=== PATIENT | male | born 1995 | race Caucasian/White ===

== ENCOUNTER 2021-11-24 12:30 | Inpatient (IN) | payer MEDICAID, SELFPAY ==
[2021-11-24 12:31] VITALS: BP 119/79; PULSE 88; RESP 15; TEMP 36; O2SAT 98; BMI 24.3
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
[2021-11-24] MEDS: LORazepam 1 MG Tablet PO (12:56)
[2021-11-24] MEDS: Ondansetron ODT 4 MG Tablet PO (12:56)
[2021-11-24 13:11] LABS: Absolute Lymphocyte Count 1.34 X10^3/uL (0.83-4.51); Absolute Neutrophil Count 6.2 X10^3/uL (2.0-7.7); Basophil# 0.03 X10^3/uL; Basophil% 0.3 % (0-1); Eosinophil# 0.31 X10^3/uL; Eosinophils% 3.6 % (0-5); Hematocrit 35.6 % (40-54); Hemoglobin 11.4 g/dL (13.0-16.5); Lymphocyte # 1.34 X10^3/ul (0.83-4.51); Lymphocyte % 15.5 % (19-41); Mean Corpuscular Hgb 27.9 pg (27.0-32.0); Mean Platelet Vol. 11.3 fl (6.2-12.0); Monocyte# 0.71 X10^3/uL; Monocyte% 8.2 % (0-10); NRBC Flagged by Analyzer 0 % (0-5); Neutrophil % 72.1 % (47-70); Platelet Count 258 K/mm3 (150-450); RBC Distribution Width CV 12.3 % (11.6-14.6); RBC Distribution Width SD 39.7 fl (35.1-43.9); Red Blood Count 4.09 M/mm3 (4.6-6.2); White Blood Count 8.6 K/mm3 (4.4-11.0)
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
[2021-11-24 13:28] LABS: ALB/GLOB Ratio 0.9 RATIO (0.9-2.4); AST(SGOT) 13 U/L (15-37); Alanine Aminotransfer ALT/SGPT 14 U/L (16-61); Albumin, Serum 3.3 g/dL (3.2-5.0); Alkaline Phosphatase 89 U/L (45-117); Anion Gap 5 (5-15); BUN 5 mg/dL (7-18); BUN/Creat Ratio 6.3 RATIO (10-20); Calcium,Total 8.9 mg/dL (8.5-10.1); Chloride 107 mmol/L (98-107); EST Glomerular Filtration Rate 125 mL/min (>60); Est Glom Filt Rate - Afr Amer 152 mL/min (>60); Estimated Creatinine Clearance 145.75 ml/min; Globulin 3.6 g/dL (2.2-4.2); Glucose 102 mg/dL (74-106); Potassium 3.7 mmol/L (3.5-5.1); Protein, Total 6.9 g/dL (6.4-8.2); Sodium Level 141 mmol/L (136-145)
[2021-11-24 13:34] LABS: Amphetamine Urine VISTA NEGATIVE (<1000 ng/mL); Barbiturate Urine VISTA NEGATIVE (< 200 ng/mL); Benzodiazepine Urine VISTA NEGATIVE (< 200 ng/mL); Cocaine Urine VISTA NEGATIVE (< 300 ng/mL); Ecstacy Urine VISTA NEGATIVE (< 500 ng/mL); Methadone Urine VISTA NEGATIVE (< 300 ng/mL); PCP Urine VISTA NEGATIVE (< 25 ng/mL); THC Urine VISTA POSITIVE (< 50 ng/mL); Vista UDS pH Range 6
--- NOTE | 2021-11-24 13:43 | CM.ED ---
Social Work Note Reason for Referral: LIVIER MONTERO reviewed chart. Pt is at [facility] for detox. SW in to speak with pt. Pt has guest present in room. Pt gave permission for this worker to speak to him in front of his guest. Pt confirms that he is at [facility] for RAMP/Detox. Pt states that he is aware of the rules and is agreeable to the rules. SW informed pt that this worker will call the addiction therapist to let her know pt is at [facility] and pt will be seen tomorrow. Pt states understanding. Pt's guest states she is a SW, states she called [employer] about the program, denied any additional questions or concerns at this time. KYLAH placed a call to [facility], addiction therapist, and provided referral. Plan: LIVIER Cortez [employer], [employer]
[2021-11-24 14:00] VITALS: BMI 24.3
[2021-11-24 14:01] VITALS: BP 141/65; PULSE 84; RESP 20; TEMP 36.8; O2SAT 99
[2021-11-24] MEDS: Gabapentin 300 MG Capsule PO ×2 (15:00→23:18)
[2021-11-24] MEDS: Buprenorphine HCl 2 MG TAB.SUBL SL ×2 (15:00→22:12)
[2021-11-24] MEDS: Acetaminophen 325 MG Tablet 650 MG PO (15:00)
[2021-11-24] MEDS: Dicyclomine 10 MG Capsule 20 MG PO (15:00)
[2021-11-24 20:19] VITALS: BP 112/65; PULSE 69; RESP 18; TEMP 37; O2SAT 97
[2021-11-24] MEDS: Methocarbamol 750 MG Tablet 1500 MG PO (20:21)
[2021-11-24] MEDS: hydrOXYzine PAM 25 MG Capsule 50 MG PO (20:25)
[2021-11-24 22:07] VITALS: BP 108/66; PULSE 62; RESP 16; TEMP 36.9; O2SAT 98
[2021-11-24] MEDS: QUEtiapine 25 MG Tablet 150 MG PO (22:11)
[2021-11-24] MEDS: lamoTRIgine 100 MG Tablet PO (22:11)
[2021-11-25 03:48] VITALS: BP 126/68; PULSE 77; RESP 18; TEMP 37; O2SAT 100
[2021-11-25] MEDS: Dicyclomine 10 MG Capsule 20 MG PO (03:53)
[2021-11-25] MEDS: cloNIDine HCl 0.1 MG Tablet PO ×2 (03:53→20:18)
[2021-11-25 06:24] VITALS: BP 116/61; PULSE 75; RESP 16; TEMP 37; O2SAT 100
[2021-11-25] MEDS: Methocarbamol 750 MG Tablet 1500 MG PO ×2 (06:29→20:18)
[2021-11-25] MEDS: Buprenorphine HCl 2 MG TAB.SUBL SL ×3 (06:29→21:56)
[2021-11-25] MEDS: hydrOXYzine PAM 25 MG Capsule 50 MG PO ×2 (06:29→20:18)
[2021-11-25 07:50] VITALS: O2SAT 98
--- NOTE | 2021-11-25 07:59 | PCM.PN.HOSP ---
Subjective Subjective Follow-up on acute opioid withdrawal: Patient was seen and examined. No new complaints. No acute events. Objective Data Objective Data Vital Signs: Vital Signs Temp Pulse Resp BP Pulse Ox O2 Del Method 98.6 F 75 16 116/61 98 Room Air 11/25/21 06:24 11/25/21 06:24 11/25/21 06:24 11/25/21 06:24 11/25/21 07:50 11/25/21 07:50 Oxygen Delivery Method Room Air Weight: 77.11 kg Body Mass Index (BMI) 24.3 Intake & Output: Intake and Output for Last 24 Hours 11/23/21 11/24/21 11/25/21 23:59 23:59 23:59 Intake Total 1100 / 1100 400 / 400 Balance 1100 / 1100 400 / 400 Lab / Micro Data Result Diagrams: 11/24/21 13:00 11/24/21 13:00 Labs: Laboratory Results - last 24 hr 11/24/21 13:00: WBC 8.6, RBC 4.09 L, Hgb 11.4 L, Hct 35.6 L, MCV 87.0, MCH 27.9, MCHC 32.0, RDW Std Deviation 39.7, RDW Coeff of Ranijt 12.3, Plt Count 258, MPV 11.3, Immature Gran % (Auto) 0.300, Neut % (Auto) 72.1 H, Lymph % (Auto) 15.5 L, [place] % (Auto) 8.2, Eos % (Auto) 3.6, Baso % (Auto) 0.3, Absolute Neuts (auto) 6.2, Absolute Lymphs (auto) 1.34, Nucleated RBC % 0 11/24/21 13:00: Sodium 141, Potassium 3.7, Chloride 107, Carbon Dioxide 29.0, Anion Gap 5, BUN 5 L, Creatinine 0.80, Estim Creat Clear Calc 145.75, Est GFR (MDRD) Af Amer 152, Est GFR (MDRD) Non-Af 125, BUN/Creatinine Ratio 6.3 L, Glucose 102, Calcium 8.9, Total Bilirubin 0.90, AST 13 L, ALT 14 L, Alkaline Phosphatase 89, Total Protein 6.9, Albumin 3.3, Globulin 3.6, Albumin/Globulin Ratio 0.9 11/24/21 13:00: Ethyl Alcohol 9.0 11/24/21 13:18: Urine Opiates Screen NEGATIVE, Urine Methadone Screen NEGATIVE, Ur Barbiturates Screen NEGATIVE, Ur Phencyclidine Scrn NEGATIVE, Ur Amphetamines Screen NEGATIVE, MDMA (Ecstasy) Screen NEGATIVE, U Benzodiazepines Scrn NEGATIVE, Urine Cocaine Screen NEGATIVE, U Cannabinoids Screen POSITIVE H, Ur Drug Screen Comment Physical Exam Narrative Physical exam: General: Alert, Oriented x3, Cooperative, No apparent distress HEENT: Atraumatic Oral: Moist Mucosa Neck: Supple Lungs: Clear to auscultation Cardiovascular: HS I+II, regular, no murmurs Abdomen: Bowel Sounds Present, Soft, Non Tender Extremities: No edema Skin: No rashes, No breakdown Neurological: Grossly intact Psych/Mental Status: Appropriate Assessment & Plan Assessment/Plan (1) Opiate withdrawal: (2) Desire for detoxification: (3) Tobacco abuse: (4) Marijuana use: PLAN: Plan 1. Acute opioid withdrawal, last Cina score was 7 Continue on Subutex withdrawal protocol Follow-up on recommendation from addiction medicine 2. Depression, continue Lamictal and Seroquel 3. Nicotine dependence, advised to quit 4. Polysubstance use, advised to quit 5. Recent femur/tibia fracture, outpatient follow-up recommended 6. DVT prophylaxis?Lovenox subcu Charges/Coding Visit Charges Inpatient E&M: 98611 Subs Hosp L2
[2021-11-25 08:38] VITALS: BP 111/67; PULSE 74; RESP 18; TEMP 37; O2SAT 99
[2021-11-25] MEDS: Acetaminophen 325 MG Tablet 650 MG PO ×2 (08:45→20:18)
--- NOTE | 2021-11-25 11:25 | ADDICTION ---
This sign writer hand met with PT to conduct ASAM, MSE, AUDIT, DUDIT assessments and to plan for d/c. PT A+Ox4 and participated actively. All assessments completed, faxed to [facility] and placed in PT's chart. PT does not believe he needs further treatment, however he reported he would look into f/u with individual counselor at [facility] in [place] where he will be staying with his sister. PT did not indicate a need for transportation post d/c from [facility].
[2021-11-25 14:04] VITALS: BP 118/66; PULSE 58; RESP 18; TEMP 36.9; O2SAT 96
[2021-11-25 20:06] VITALS: BP 109/80; PULSE 60; RESP 18; TEMP 36.7; O2SAT 99
[2021-11-25] MEDS: lamoTRIgine 100 MG Tablet PO (21:57)
[2021-11-25] MEDS: QUEtiapine 25 MG Tablet 150 MG PO (21:57)
[2021-11-25] MEDS: traZODone 100 MG Tablet PO (22:05)
[2021-11-26 02:30] VITALS: BP 110/61; PULSE 70; RESP 18; TEMP 36.9; O2SAT 98
[2021-11-26] MEDS: Acetaminophen 325 MG Tablet 650 MG PO ×2 (02:38→08:32)
[2021-11-26] MEDS: Methocarbamol 750 MG Tablet 1500 MG PO ×3 (02:38→20:46)
[2021-11-26] MEDS: Gabapentin 300 MG Capsule PO ×2 (02:38→20:46)
[2021-11-26] MEDS: Buprenorphine HCl 2 MG TAB.SUBL SL ×2 (06:19→14:30)
--- NOTE | 2021-11-26 08:06 | PCM.PN.HOSP ---
Subjective Subjective Follow-up on acute opioid withdrawal: Patient was seen and examined.? No new complaints.? No acute events. Objective Data Objective Data Vital Signs: Vital Signs Temp Pulse Resp BP Pulse Ox O2 Del Method 98.4 F 70 18 110/61 98 Room Air 11/26/21 02:30 11/26/21 02:30 11/26/21 02:30 11/26/21 02:30 11/26/21 02:30 11/26/21 02:30 Oxygen Delivery Method Room Air Weight: 77.11 kg Body Mass Index (BMI) 24.3 Intake & Output: Intake and Output for Last 24 Hours 11/24/21 11/25/21 11/26/21 23:59 23:59 23:59 Intake Total 1100 / 1100 1160 / 1160 600 / 600 Balance 1100 / 1100 1160 / 1160 600 / 600 Lab / Micro Data Result Diagrams: 11/24/21 13:00 11/24/21 13:00 Physical Exam Narrative Physical exam: General: Alert, Oriented x3, Cooperative, No apparent distress HEENT: Atraumatic Oral: Moist Mucosa Neck: Supple Lungs: Clear to auscultation Cardiovascular: HS I+II, regular, no murmurs Abdomen: Bowel Sounds Present, Soft, Non Tender Extremities: No edema Skin: No rashes, No breakdown Neurological: Grossly intact Psych/Mental Status: Appropriate Assessment & Plan Assessment/Plan (1) Opiate withdrawal: (2) Desire for detoxification: (3) Tobacco abuse: (4) Marijuana use: PLAN: Plan 1. Acute opioid withdrawal, last Cina score was 1 Continue on Subutex withdrawal protocol Follow-up on recommendation from addiction medicine 2. Depression, continue Lamictal and Seroquel 3. Nicotine dependence, advised to quit 4. Polysubstance use, advised to quit 5. Recent femur/tibia fracture, outpatient follow-up recommended 6. DVT prophylaxis?Lovenox subcu Charges/Coding Visit Charges Inpatient E&M: 73698 Subs Hosp L2
[2021-11-26 08:35] VITALS: BP 122/80; PULSE 68; RESP 16; TEMP 37.2; O2SAT 97
[2021-11-26 14:27] VITALS: BP 110/61; PULSE 71; RESP 16; TEMP 36.8; O2SAT 100
[2021-11-26 20:30] VITALS: BP 111/69; PULSE 67; RESP 18; TEMP 37; O2SAT 99
[2021-11-26] MEDS: cloNIDine HCl 0.1 MG Tablet PO (20:46)
[2021-11-26] MEDS: hydrOXYzine PAM 25 MG Capsule 50 MG PO (20:46)
[2021-11-26] MEDS: QUEtiapine 25 MG Tablet 150 MG PO (22:16)
[2021-11-26] MEDS: lamoTRIgine 100 MG Tablet PO (22:16)
[2021-11-26] MEDS: traZODone 100 MG Tablet PO (22:16)
[2021-11-27 02:30] VITALS: BP 107/63; PULSE 81; RESP 18; TEMP 36.7; O2SAT 97
[2021-11-27] MEDS: Buprenorphine HCl 2 MG TAB.SUBL SL (02:45)
[2021-11-27] MEDS: hydrOXYzine PAM 25 MG Capsule 50 MG PO (02:49)
[2021-11-27] MEDS: Methocarbamol 750 MG Tablet 1500 MG PO (02:49)
--- NOTE | 2021-11-27 08:12 | NURSING ---
Patient leaving AMA, form signed.
== END 2021-11-27 08:30 | disposition left against medical advice (07) | DRG 770 ==
LOC: ED 13:20 → MS3 13:43
PROVIDERS: Admitting Provider Internal Medicine; Emergency Provider Emergency Medicine; Visit Provider Internal Medicine
DX: F11.23 Opioid dependence with withdrawal (principal); F17.290 Nicotine dependence, other tobacco product, uncomplicated; S72.92XD Unspecified fracture of left femur, subsequent encounter for closed fracture with routine healing; S82.202D Unspecified fracture of shaft of left tibia, subsequent encounter for closed fracture with routine healing; V99.XXXD Unspecified transport accident, subsequent encounter; F32.A Depression, unspecified; Z79.899 Other long term (current) drug therapy
CPT/HCPCS: 80053; 80307; 82077; 85025; 99284; A4216